=== PATIENT | male | born 1985 | race Two or more races ===

== ENCOUNTER 2016-12-16 07:22 | Emergency (ER) | payer SELFPAY ==
[~2016-12-16] VITALS: Ht 182.9 cm; Wt 90.5 kg
[~2016-12-16 07:22] MED LIST: HYDR-3965 PO; NAPR250T2 PO
[2016-12-16 08:50] VITALS: BP 113/61
[2016-12-16] MEDS ORDERED: PERTUSS(ACELL),DIPH,TET VAC/PF 0.5 ML VIAL IM ONE (09:30)
== END 2016-12-16 09:38 | disposition home or self-care (01) ==
LOC: EMS 07:24
DX: S20.219A Contusion of unspecified front wall of thorax, initial encounter (principal); S80.211A Abrasion, right knee, initial encounter; S80.811A Abrasion, right lower leg, initial encounter; F17.210 Nicotine dependence, cigarettes, uncomplicated; F12.10 Cannabis abuse, uncomplicated; V00.131A Fall from skateboard, initial encounter; Y93.51 Activity, roller skating (inline) and skateboarding; Y92.89 Other specified places as the place of occurrence of the external cause; Y99.8 Other external cause status
CPT/HCPCS: 90471; 90715; 99283

== ENCOUNTER 2017-12-03 09:33 | Emergency (ER) | payer SELFPAY ==
[~2017-12-03] VITALS: Ht 182.9 cm; Wt 100.0 kg
[2017-12-03 10:23] VITALS: BP 144/82
== END 2017-12-03 10:24 | disposition home or self-care (01) ==
LOC: EMS 09:33
DX: S91.204D Unspecified open wound of right lesser toe(s) with damage to nail, subsequent encounter (principal); B35.1 Tinea unguium; F12.90 Cannabis use, unspecified, uncomplicated; F17.210 Nicotine dependence, cigarettes, uncomplicated; Z48.02 Encounter for removal of sutures; X58.XXXD Exposure to other specified factors, subsequent encounter
CPT/HCPCS: 99282; 99406

== ENCOUNTER 2020-03-31 17:54 | Inpatient (IN) | payer MEDICAID ==
[~2020-03-31] VITALS: Ht 175.3 cm; Wt 108.6 kg
[2020-03-31 19:41] LABS: COVID AG,FIA SOURCE NASOPHARYNGEAL
[2020-03-31 19:44] LABS: BASOPHILS % (AUTO) 0.6 % (0.0-2.0); EOSINOPHILS % (AUTO) 2.6 % (1.0-6.0); HEMATOCRIT 41.5 % (41-53); HEMOGLOBIN 14.4 g/dL (13.5-17.5); LYMPHOCYTES # (AUTO) 2.9 K/uL (1.0-4.8); LYMPHOCYTES % (AUTO) 33.6 % (22.0-44.0); MEAN CORPUSCULAR HEMOGLOBIN 33.5 pg (26.0-34.0); MEAN CORPUSCULAR HGB CONC 34.6 G/dL (31.0-37.0); MEAN CORPUSCULAR VOLUME 97 fL (80-100); MONOCYTES # (AUTO) 0.7 K/uL (0.1-1.0); MONOCYTES % (AUTO) 8.3 % (2.0-9.0); NEUTROPHILS # (AUTO) 4.7 K/uL (1.8-7.7); NEUTROPHILS % (AUTO) 54.9 % (40.0-70.0); PLATELET COUNT (AUTO) 238 K/uL (150-450); RED BLOOD CELL COUNT(AUTO) 4.28 MIL/uL (4.50-5.90); RED CELL DISTRIBUTION WIDTH 13.4 % (11.5-14.5)
[2020-03-31 19:50] LABS: AMPHET/METH SCREEN,URINE NEGATIVE (NEGATIVE); BARBITURATE SCREEN, URINE NEGATIVE (NEGATIVE); BENZODIAZEPINES SCREEN,URINE NEGATIVE (NEGATIVE); CANNABINOID SCREEN,URINE NEGATIVE (NEGATIVE); COCAINE SCREEN,URINE NEGATIVE (NEGATIVE); METHADONE SCREEN, URINE NEGATIVE (NEGATIVE); OPIATE SCREEN,URINE NEGATIVE (NEGATIVE)
[2020-03-31 19:52] LABS: ANION GAP 10 mmol/L (8-16); CALCIUM, TOTAL 8.9 mg/dL (8.8-10.5); CARBON DIOXIDE 25 mmol/L (22-29); CHLORIDE 104 mmol/L (98-107); CREATININE 0.81 mg/dL (0.60-1.30); GLOMERULAR FILTR. RATE CALC > 60 mL/min (>60); GLUCOSE,RANDOM 94 mg/dL (70-110); POTASSIUM 4.4 mmol/L (3.5-5.1); SODIUM SERUM 139 mmol/L (136-145); UREA NITROGEN, BLOOD 20 mg/dL (7-18)
[2020-03-31 19:53] LABS: PHENCYCLIDINE SCREEN,URINE NEGATIVE (NEGATIVE)
[2020-03-31 19:58] LABS: ALANINE AMINOTRANSFERASE 169 U/L (12-78); ALBUMIN 3.7 g/dL (3.4-5.0); ALKALINE PHOSPHATASE 90 U/L (46-116); ASPARTATE AMINOTRANSFERASE 51 U/L (15-37); BILIRUBIN,TOTAL 0.3 mg/dL (0.1-1.0); TOTAL PROTEIN, SERUM 7.6 g/dL (6.4-8.2)
[2020-03-31] MEDS ORDERED: ZOLPIDEM TARTRATE 10 MG TABLET PO PRN (23:15)
[2020-03-31] MEDS ORDERED: QUEtiapine FUMARATE 100 MG TABLET PO PRN (23:15)
[2020-04-01 00:58] VITALS: BP 109/71
[2020-04-01] MEDS ORDERED: INFLUENZA VIRUS VACCINE QVS 2020-21 (6MO+)/PF 60 MCG/0.5 ML SYRINGE IM ONE (01:15)
[2020-04-01] MEDS ORDERED: MAG HYDROX/AL HYDROX/SIMETH ES 30 ML SUSPENSION UDCUP PO PRN (07:00)
[2020-04-01] MEDS ORDERED: ONDANSETRON HCL 4 MG TABLET PO PRN (07:00)
[2020-04-01] MEDS ORDERED: LOPERAMIDE HCL 2 MG CAPSULE PO PRN (07:00)
[2020-04-01] MEDS ORDERED: MAGNESIUM HYDROXIDE SUSPENSION 30 ML UDCUP PO PRN (07:00)
[2020-04-01] MEDS ORDERED: PETROLATUM,WHITE 28 GM JELLY TP PRN (07:00)
[2020-04-01] MEDS ORDERED: IBUPROFEN 400 MG TABLET PO PRN (07:00)
[2020-04-01] MEDS ORDERED: ALBUTEROL SULFATE HFA 90 MCG/PUFF 8 GM INHALER IH PRN (07:00)
[2020-04-01] MEDS ORDERED: NICOTINE 14 MG/24 HOUR PATCH TD PRN (07:00)
[2020-04-01] MEDS ORDERED: ACETAMINOPHEN 325 MG TABLET PO PRN (07:00)
[2020-04-01] MEDS ORDERED: CloNIDine HCL 0.1 MG TABLET PO PRN (07:00)
[2020-04-01] MEDS ORDERED: DOCUSATE SODIUM 100 MG CAPSULE PO PRN (07:00)
[2020-04-01] MEDS ORDERED: GuaiFENesin/D-METHORPHAN [SUGAR-FREE] 200-20MG/10 ML SYRUP UDCUP PO PRN (07:00)
[2020-04-01 08:10] LABS: CHOL/HDL RATIO 6.7 (4.2-7.3)
[2020-04-01 08:24] VITALS: BP 129/77
[2020-04-01] MEDS: NICOTINE 14 MG/24 HOUR PATCH TD SCH (09:36)
[2020-04-01] MEDS: LORazepam 2 MG TABLET PO PRN ×2 (09:36→20:37)
[2020-04-01 16:13] VITALS: BP 114/66
[2020-04-01] MEDS: RisperiDONE 1 MG TABLET PO SCH (20:37)
[2020-04-02 04:30] VITALS: BP 116/64
[2020-04-02 08:28] VITALS: BP 122/77
[2020-04-02] MEDS: LORazepam 2 MG TABLET PO PRN ×2 (08:47→16:41)
[2020-04-02] MEDS: RisperiDONE 1 MG TABLET PO SCH ×2 (08:47→20:38)
[2020-04-02] MEDS: NICOTINE 14 MG/24 HOUR PATCH TD SCH (08:47)
[2020-04-02 16:18] VITALS: BP 119/67
[2020-04-03 06:19] VITALS: BP 128/86
[2020-04-03] MEDS: RisperiDONE 1 MG TABLET PO SCH (08:09)
[2020-04-03] MEDS: NICOTINE 14 MG/24 HOUR PATCH TD SCH (08:09)
[2020-04-03] MEDS: LORazepam 2 MG TABLET PO PRN (08:09)
[2020-04-03 08:11] VITALS: BP 143/73
[2020-04-03] MEDS ORDERED: RISP1TAB48 PO (14:01)
== END 2020-04-03 16:15 | disposition home or self-care (01) | DRG 750 ==
LOC: EMS 17:55 → UNDOADMIN 23:08 → B3A 23:08
DX: F25.0 Schizoaffective disorder, bipolar type (principal); K21.9 Gastro-esophageal reflux disease without esophagitis; F17.210 Nicotine dependence, cigarettes, uncomplicated; F12.90 Cannabis use, unspecified, uncomplicated; E78.5 Hyperlipidemia, unspecified; R45.851 Suicidal ideations; R74.01 Elevation of levels of liver transaminase levels; Z03.818 Encounter for observation for suspected exposure to other biological agents ruled out
CPT/HCPCS: 83036; 87426; 90686; G0480

== ENCOUNTER 2020-04-14 11:51 | Inpatient (IN) | payer MEDICAID ==
[~2020-04-14] VITALS: Ht 175.3 cm; Wt 104.8 kg
[~2020-04-14 11:51] MED LIST changes: -HYDR-3965 PO; -NAPR250T2 PO; +RISP1TAB48 PO
[2020-04-14 12:21] LABS: BASOPHILS % (AUTO) 0.3 % (0.0-2.0); HEMATOCRIT 44.3 % (41-53); HEMOGLOBIN 15.5 g/dL (13.5-17.5); LYMPHOCYTES # (AUTO) 1.8 K/uL (1.0-4.8); MEAN CORPUSCULAR HEMOGLOBIN 33.5 pg (26.0-34.0); MEAN CORPUSCULAR HGB CONC 34.9 G/dL (31.0-37.0); MEAN CORPUSCULAR VOLUME 96 fL (80-100); MONOCYTES # (AUTO) 0.4 K/uL (0.1-1.0); MONOCYTES % (AUTO) 6.8 % (2.0-9.0); NEUTROPHILS # (AUTO) 3.7 K/uL (1.8-7.7); NEUTROPHILS % (AUTO) 61.9 % (40.0-70.0); PLATELET COUNT (AUTO) 257 K/uL (150-450); RED BLOOD CELL COUNT(AUTO) 4.62 MIL/uL (4.50-5.90); RED CELL DISTRIBUTION WIDTH 13.5 % (11.5-14.5)
[2020-04-14 12:28] LABS: COVID AG,FIA SOURCE NASOPHARYNGEAL
[2020-04-14 12:30] LABS: ANION GAP 6 mmol/L (8-16); CALCIUM, TOTAL 9.1 mg/dL (8.8-10.5); CARBON DIOXIDE 29 mmol/L (22-29); CHLORIDE 104 mmol/L (98-107); CREATININE 1.08 mg/dL (0.60-1.30); GLOMERULAR FILTR. RATE CALC > 60 mL/min (>60); GLUCOSE,RANDOM 102 mg/dL (70-110); POTASSIUM 4.2 mmol/L (3.5-5.1); SODIUM SERUM 139 mmol/L (136-145); UREA NITROGEN, BLOOD 11 mg/dL (7-18)
[2020-04-14 12:35] LABS: ALANINE AMINOTRANSFERASE 35 U/L (12-78); ALBUMIN 4.2 g/dL (3.4-5.0); ALKALINE PHOSPHATASE 84 U/L (46-116); ASPARTATE AMINOTRANSFERASE 22 U/L (15-37); BILIRUBIN,TOTAL 0.5 mg/dL (0.1-1.0); TOTAL PROTEIN, SERUM 8.3 g/dL (6.4-8.2)
[2020-04-14] MEDS ORDERED: LORazepam 2 MG TABLET PO ONE (13:30)
[2020-04-14] MEDS ORDERED: HALOPERIDOL 5 MG TABLET PO ONE (13:30)
[2020-04-14] MEDS ORDERED: QUEtiapine FUMARATE 100 MG TABLET PO PRN (14:30)
[2020-04-14] MEDS ORDERED: ZOLPIDEM TARTRATE 10 MG TABLET PO PRN (14:30)
[2020-04-14] MEDS: LORazepam 2 MG TABLET PO PRN (21:52)
[2020-04-14 22:14] VITALS: BP 119/74
[2020-04-15] MEDS ORDERED: INFLUENZA VIRUS VACCINE QVS 2020-21 (6MO+)/PF 60 MCG/0.5 ML SYRINGE IM ONE (00:45)
[2020-04-15 05:32] VITALS: BP 124/76
[2020-04-15 08:46] VITALS: BP 129/79
[2020-04-15] MEDS ORDERED: ACETAMINOPHEN 325 MG TABLET PO PRN (09:15)
[2020-04-15] MEDS ORDERED: PETROLATUM,WHITE 28 GM JELLY TP PRN (09:15)
[2020-04-15] MEDS ORDERED: IBUPROFEN 400 MG TABLET PO PRN (09:15)
[2020-04-15] MEDS ORDERED: GuaiFENesin/D-METHORPHAN [SUGAR-FREE] 200-20MG/10 ML SYRUP UDCUP PO PRN (09:15)
[2020-04-15] MEDS ORDERED: ALBUTEROL SULFATE HFA 90 MCG/PUFF 8 GM INHALER IH PRN (09:15)
[2020-04-15] MEDS ORDERED: ONDANSETRON HCL 4 MG TABLET PO PRN (09:15)
[2020-04-15] MEDS ORDERED: DOCUSATE SODIUM 100 MG CAPSULE PO PRN (09:15)
[2020-04-15] MEDS ORDERED: MAGNESIUM HYDROXIDE SUSPENSION 30 ML UDCUP PO PRN (09:15)
[2020-04-15] MEDS ORDERED: MAG HYDROX/AL HYDROX/SIMETH ES 30 ML SUSPENSION UDCUP PO PRN (09:15)
[2020-04-15] MEDS ORDERED: NICOTINE 14 MG/24 HOUR PATCH TD PRN (09:15)
[2020-04-15] MEDS ORDERED: LOPERAMIDE HCL 2 MG CAPSULE PO PRN (09:15)
[2020-04-15] MEDS ORDERED: CloNIDine HCL 0.1 MG TABLET PO PRN (09:15)
[2020-04-15] MEDS: NICOTINE 21 MG/24 HOUR PATCH TD SCH (10:34)
[2020-04-15] MEDS: LORazepam 2 MG TABLET PO PRN ×2 (10:34→16:55)
[2020-04-15] MEDS: RisperiDONE 1 MG TABLET PO SCH ×2 (10:58→20:39)
[2020-04-15 16:58] VITALS: BP 101/62
[2020-04-16 02:01] VITALS: BP 118/62
[2020-04-16 08:30] VITALS: BP 103/67
[2020-04-16] MEDS: RisperiDONE 1 MG TABLET PO SCH ×2 (09:47→20:22)
[2020-04-16] MEDS: NICOTINE 21 MG/24 HOUR PATCH TD SCH (12:06)
[2020-04-16] MEDS: LORazepam 2 MG TABLET PO PRN (14:25)
[2020-04-16 16:22] VITALS: BP 126/84
[2020-04-17 03:29] VITALS: BP 122/63
[2020-04-17] MEDS: LORazepam 2 MG TABLET PO PRN (03:43)
[2020-04-17 08:26] VITALS: BP 139/82
[2020-04-17] MEDS: NICOTINE 21 MG/24 HOUR PATCH TD SCH (08:30)
[2020-04-17] MEDS: RisperiDONE 1 MG TABLET PO SCH (08:30)
== END 2020-04-17 14:00 | disposition home or self-care (01) | DRG 750 ==
LOC: EMS 11:55 → B3A 18:21
DX: F25.0 Schizoaffective disorder, bipolar type (principal); E78.5 Hyperlipidemia, unspecified; Z91.5 Personal history of self-harm; F19.10 Other psychoactive substance abuse, uncomplicated; Z91.14 Patient's other noncompliance with medication regimen; F17.210 Nicotine dependence, cigarettes, uncomplicated; F12.90 Cannabis use, unspecified, uncomplicated; Z79.899 Other long term (current) drug therapy; Z20.828 Contact with and (suspected) exposure to other viral communicable diseases
CPT/HCPCS: 87081; 87426; G0480

== ENCOUNTER 2023-04-18 17:35 | Emergency (ER) | payer MEDICAID ==
[~2023-04-18] VITALS: Ht 175.3 cm; Wt 77.3 kg
[2023-04-18 17:44] VITALS: TEMP 98
[2023-04-18] MEDS ORDERED: TRAZ-257 PO (17:46)
[2023-04-18 18:14] LABS: BASOPHILS % (AUTO) 0.2 % (0.0-2.0); EOSINOPHILS % (AUTO) 2.1 % (1.0-6.0); HEMATOCRIT 41.7 % (41-53); HEMOGLOBIN 14.8 g/dL (13.5-17.5); LYMPHOCYTES # (AUTO) 2.7 K/uL (1.0-4.8); LYMPHOCYTES % (AUTO) 45.7 % (22.0-44.0); MEAN CORPUSCULAR HEMOGLOBIN 33.3 pg (26.0-34.0); MEAN CORPUSCULAR HGB CONC 35.5 G/dL (31.0-37.0); MEAN CORPUSCULAR VOLUME 94 fL (80-100); MONOCYTES # (AUTO) 0.4 K/uL (0.1-1.0); MONOCYTES % (AUTO) 6.4 % (2.0-9.0); NEUTROPHILS # (AUTO) 2.7 K/uL (1.8-7.7); NEUTROPHILS % (AUTO) 45.6 % (40.0-70.0); PLATELET COUNT (AUTO) 186 K/uL (150-450); RED BLOOD CELL COUNT(AUTO) 4.45 MIL/uL (4.50-5.90); RED CELL DISTRIBUTION WIDTH 13.2 % (11.5-14.5)
[2023-04-18 18:25] LABS: ANION GAP 4 mmol/L (8-16); CARBON DIOXIDE 32 mmol/L (22-29); CHLORIDE 101 mmol/L (98-107); GLUCOSE,RANDOM 73 mg/dL (70-110); POTASSIUM 4.4 mmol/L (3.5-5.1); SODIUM SERUM 137 mmol/L (136-145); UREA NITROGEN, BLOOD 14 mg/dL (7-18)
[2023-04-18 18:26] LABS: CALCIUM, TOTAL 9.4 mg/dL (8.8-10.5); GLOMERULAR FILTR. RATE CALC > 60 mL/min (>60)
[2023-04-18 18:30] LABS: B-TYPE NATRIURETIC PEPTIDE 11 pg/mL (0-100)
[2023-04-18 18:31] LABS: TROPONIN I-HIGH SENSITIVITY 5 ng/L (<76)
[2023-04-18 18:50] LABS: ALANINE AMINOTRANSFERASE 35 U/L (12-78); ALBUMIN 4.1 g/dL (3.4-5.0); ALKALINE PHOSPHATASE 63 U/L (46-116); ASPARTATE AMINOTRANSFERASE 16 U/L (15-37); BILIRUBIN,TOTAL 0.6 mg/dL (0.1-1.0); CREATINE KINASE, TOTAL ONLY 84 U/L (39-308); TOTAL PROTEIN, SERUM 8.2 g/dL (6.4-8.2)
[2023-04-18 18:56] LABS: APPEARANCE,URINE CLEAR (CLEAR); BILIRUBIN,URINE NEGATIVE (NEGATIVE); COLOR,URINE COLORLESS (YELLOW); GLUCOSE, URINE (UA) NEGATIVE (NEGATIVE); KETONES,URINE NEGATIVE (NEGATIVE); LEUKOCYTE ESTERASE ,URINE NEGATIVE (NEGATIVE); NITRATE,URINE NEGATIVE (NEGATIVE); OCCULT BLOOD,URINE NEGATIVE (NEGATIVE); PH,URINE 6.5 (5.0-8.0); PROTEIN,URINE NEGATIVE (NEGATIVE); SPECIFIC GRAVITIY, URINE 1.009 (1.003-1.030); UROBILINOGEN,URINE <=1.0 mg/dL (<=1.0)
[2023-04-18] MEDS ORDERED: ACETAMINOPHEN 500 MG TABLET PO ONE (20:00)
[2023-04-18] MEDS ORDERED: IBUPROFEN 600 MG TABLET PO ONE (20:00)
[2023-04-18 20:03] VITALS: BP 120/74; PULSE 60; RESP 20
[2023-04-18] MEDS ORDERED: IBUP-1554 PO (20:21)
== END 2023-04-18 20:41 | disposition admitted as inpatient to this hospital (09) ==
LOC: EMS 18:54
DX: R07.89 Other chest pain (principal); F25.1 Schizoaffective disorder, depressive type; F17.210 Nicotine dependence, cigarettes, uncomplicated; F12.90 Cannabis use, unspecified, uncomplicated
CPT/HCPCS: 71045; 80053; 81003; 82550; 83880; 84484; 85025; 93005; 99285; 36415-L1; 36415-TC

== ENCOUNTER 2023-12-10 15:47 | Emergency (ER) | payer MEDICAID ==
[~2023-12-10] VITALS: Ht 175.3 cm; Wt 78.2 kg
[~2023-12-10 15:47] MED LIST changes: +IBUP-1554 PO; +TRAZ-257 PO
[2023-12-10 15:52] VITALS: BP 119/70; PULSE 76; RESP 18; TEMP 98.1
== END 2023-12-10 16:18 | disposition left against medical advice (07) ==
LOC: EMS 15:47
DX: R10.31 Right lower quadrant pain (principal); Z53.21 Procedure and treatment not carried out due to patient leaving prior to being seen by health care provider

== ENCOUNTER 2024-05-20 09:39 | Emergency (ER) | payer MEDICAID ==
[~2024-05-20] VITALS: Ht 175.3 cm; Wt 84.1 kg
[2024-05-20 09:44] VITALS: TEMP 97.6
[2024-05-20] MEDS ORDERED: HYDR-3831 PO (11:41)
[2024-05-20] MEDS ORDERED: LURA120T2 PO (11:41)
[2024-05-20] MEDS ORDERED: GABA-1181 PO (11:41)
[2024-05-20] MEDS ORDERED: NICO-803 TD (11:41)
[2024-05-20] MEDS: OxyCODONE HCL/ACETAMINOPHEN 5-325 MG TABLET PO ONE (11:42)
[2024-05-20] MEDS ORDERED: CYCL-448 PO (11:48)
[2024-05-20] MEDS ORDERED: OXYC-38 PO (11:49)
[2024-05-20] MEDS: LIDOCAINE 5% TRANSDERMAL PATCH TD ONE (11:53)
[2024-05-20 12:30] VITALS: BP 130/78; PULSE 70; RESP 18; O2SAT 100
== END 2024-05-20 12:42 | disposition home or self-care (01) ==
LOC: EMS 09:39
DX: M54.6 Pain in thoracic spine (principal); G47.00 Insomnia, unspecified; F17.210 Nicotine dependence, cigarettes, uncomplicated; F12.90 Cannabis use, unspecified, uncomplicated; V49.40XA Driver injured in collision with unspecified motor vehicles in traffic accident, initial encounter; Y93.89 Activity, other specified; Y92.89 Other specified places as the place of occurrence of the external cause; Y99.8 Other external cause status
CPT/HCPCS: 71046; 82962; 99283; 99406

== ENCOUNTER 2024-06-23 13:54 | Emergency (ER) | payer MEDICAID ==
[~2024-06-23] VITALS: Ht 175.3 cm; Wt 86.4 kg
[~2024-06-23 13:54] MED LIST changes: +CYCL-448 PO; +GABA-1181 PO; +HYDR-3831 PO; -IBUP-1554 PO; +LURA120T2 PO; +NICO-803 TD; +OXYC-38 PO; -RISP1TAB48 PO
[2024-06-23 14:14] VITALS: TEMP 98.7
[2024-06-23 14:17] LABS: COVID AG,FIA SOURCE NASAL SWAB
[2024-06-23 14:40] LABS: INFLUENZA TYPE A NEGATIVE FOR TYPE A (NEGATIVE); INFLUENZA TYPE B NEGATIVE FOR TYPE B (NEGATIVE); SARS-COV2 (COVID) ANTIGEN,FIA Negative (Negative)
[2024-06-23] MEDS ORDERED: ACET-3385 PO (15:18)
[2024-06-23] MEDS ORDERED: IBUP-1492 PO (15:18)
[2024-06-23] MEDS: IBUPROFEN 600 MG TABLET PO ONE (15:20)
[2024-06-23 15:38] VITALS: BP 103/62; PULSE 67; RESP 18; O2SAT 99
== END 2024-06-23 15:42 | disposition home or self-care (01) ==
LOC: EMS 13:54
DX: B34.9 Viral infection, unspecified (principal); G47.00 Insomnia, unspecified; Z88.0 Allergy status to penicillin; Z20.822 Contact with and (suspected) exposure to COVID-19
CPT/HCPCS: 87804; 99283

== ENCOUNTER 2024-07-06 14:56 | Emergency (ER) | payer MEDICAID ==
[~2024-07-06] VITALS: Ht 175.3 cm; Wt 81.8 kg
[~2024-07-06 14:56] MED LIST changes: +ACET-3385 PO; -CYCL-448 PO; +IBUP-1492 PO; -OXYC-38 PO
[2024-07-06 15:14] VITALS: TEMP 98.7
[2024-07-06 16:14] LABS: BASOPHILS % (AUTO) 0.6 % (0.0-2.0); EOSINOPHILS % (AUTO) 1.1 % (1.0-6.0); HEMATOCRIT 43.4 % (41-53); HEMOGLOBIN 14.8 g/dL (13.5-17.5); LYMPHOCYTES # (AUTO) 2.4 K/uL (1.0-4.8); LYMPHOCYTES % (AUTO) 35.4 % (22.0-44.0); MEAN CORPUSCULAR HEMOGLOBIN 32.8 pg (26.0-34.0); MEAN CORPUSCULAR HGB CONC 34.1 G/dL (31.0-37.0); MEAN CORPUSCULAR VOLUME 96 fL (80-100); MONOCYTES # (AUTO) 0.4 K/uL (0.1-1.0); MONOCYTES % (AUTO) 5.9 % (2.0-9.0); NEUTROPHILS # (AUTO) 3.8 K/uL (1.8-7.7); PLATELET COUNT (AUTO) 193 K/uL (150-450); RED BLOOD CELL COUNT(AUTO) 4.52 MIL/uL (4.50-5.90); RED CELL DISTRIBUTION WIDTH 13.1 % (11.5-14.5); WHITE BLOOD COUNT (AUTO) 6.7 K/uL (4.5-11.0)
[2024-07-06 16:23] LABS: ANION GAP 4 mmol/L (8-16); CALCIUM, TOTAL 8.7 mg/dL (8.8-10.5); CARBON DIOXIDE 30 mmol/L (22-29); CHLORIDE 107 mmol/L (98-107); CREATININE 0.77 mg/dL (0.60-1.30); GLOMERULAR FILTR. RATE CALC > 60 mL/min (>60); GLUCOSE,RANDOM 89 mg/dL (70-110); POTASSIUM 4.3 mmol/L (3.5-5.1); SODIUM SERUM 141 mmol/L (136-145); UREA NITROGEN, BLOOD 15 mg/dL (7-18)
[2024-07-06 16:27] LABS: ALANINE AMINOTRANSFERASE 31 U/L (12-78); ALBUMIN 3.7 g/dL (3.4-5.0); ALKALINE PHOSPHATASE 67 U/L (46-116); ASPARTATE AMINOTRANSFERASE 21 U/L (15-37); BILIRUBIN,TOTAL 0.7 mg/dL (0.1-1.0); LIPASE 38 U/L (16-77); TOTAL PROTEIN, SERUM 7.3 g/dL (6.4-8.2)
[2024-07-06] MEDS ORDERED: 0.9% SODIUM CHLORIDE 10 ML SYRINGE IVP ONE (16:56)
[2024-07-06] MEDS ORDERED: IOHEXOL 350 MG/ML 100 ML VIAL ONE (16:56)
[2024-07-06] MEDS ORDERED: SODIUM CHLORIDE 0.9% 100 ML ONE (16:56)
[2024-07-06] MEDS: KETOROLAC TROMETHAMINE 30 MG/ML VIAL IVP ONE (17:08)
[2024-07-06] MEDS: SODIUM CHLORIDE 0.9% 1,000 ML IV ONE (17:08)
[2024-07-06 18:11] VITALS: BP 112/68; PULSE 72; RESP 18; O2SAT 99
[2024-07-06 18:37] LABS: APPEARANCE,URINE CLEAR (CLEAR); BILIRUBIN,URINE NEGATIVE (NEGATIVE); COLOR,URINE COLORLESS (YELLOW); GLUCOSE, URINE (UA) NEGATIVE (NEGATIVE); KETONES,URINE NEGATIVE (NEGATIVE); LEUKOCYTE ESTERASE ,URINE NEGATIVE (NEGATIVE); NITRATE,URINE NEGATIVE (NEGATIVE); OCCULT BLOOD,URINE NEGATIVE (NEGATIVE); PROTEIN,URINE NEGATIVE (NEGATIVE); SPECIFIC GRAVITIY, URINE 1.036 (1.003-1.030); UROBILINOGEN,URINE <=1.0 mg/dL (<=1.0)
== END 2024-07-06 19:06 | disposition home or self-care (01) ==
LOC: EMS 14:56
DX: R10.31 Right lower quadrant pain (principal); R30.0 Dysuria; F17.210 Nicotine dependence, cigarettes, uncomplicated; Z88.0 Allergy status to penicillin; Z79.899 Other long term (current) drug therapy
CPT/HCPCS: 99285; 74177; 96374; 96361; 80048; 80076; 81003; 83690; 85025; 36415; J1885; Q9967; J7030; J7050

== ENCOUNTER 2024-08-24 06:42 | Emergency (ER) | payer MEDICAID ==
[~2024-08-24] VITALS: Ht 175.3 cm; Wt 90.9 kg
[2024-08-24 06:54] VITALS: TEMP 98.3
[2024-08-24 07:38] LABS: BASOPHILS % (AUTO) 0.4 % (0.0-2.0); EOSINOPHILS % (AUTO) 2.4 % (1.0-6.0); HEMATOCRIT 42.8 % (41-53); HEMOGLOBIN 15.1 g/dL (13.5-17.5); LYMPHOCYTES # (AUTO) 1.9 K/uL (1.0-4.8); MEAN CORPUSCULAR HEMOGLOBIN 33.6 pg (26.0-34.0); MEAN CORPUSCULAR HGB CONC 35.4 G/dL (31.0-37.0); MEAN CORPUSCULAR VOLUME 95 fL (80-100); MONOCYTES # (AUTO) 0.2 K/uL (0.1-1.0); MONOCYTES % (AUTO) 5.8 % (2.0-9.0); NEUTROPHILS # (AUTO) 1.7 K/uL (1.8-7.7); NEUTROPHILS % (AUTO) 43.4 % (40.0-70.0); PLATELET COUNT (AUTO) 150 K/uL (150-450); RED CELL DISTRIBUTION WIDTH 13.6 % (11.5-14.5); WHITE BLOOD COUNT (AUTO) 3.9 K/uL (4.5-11.0)
[2024-08-24] MEDS: MAG HYDROX/ALUMINUM HYD/SIMETH 30 ML SUSPENSION UDCUP PO ONE (07:40)
[2024-08-24] MEDS: ACETAMINOPHEN 325 MG TABLET PO ONE (07:41)
[2024-08-24] MEDS: PANTOPRAZOLE SODIUM 40 MG DR TABLET PO ONE (07:41)
[2024-08-24 07:45] LABS: ANION GAP 5 mmol/L (8-16); CARBON DIOXIDE 29 mmol/L (22-29); CHLORIDE 103 mmol/L (98-107); CREATININE 0.76 mg/dL (0.60-1.30); GLOMERULAR FILTR. RATE CALC > 60 mL/min (>60); GLUCOSE,RANDOM 104 mg/dL (70-110); POTASSIUM 4.2 mmol/L (3.5-5.1); SODIUM SERUM 137 mmol/L (136-145); UREA NITROGEN, BLOOD 9 mg/dL (7-18)
[2024-08-24 07:46] LABS: LIPASE 27 U/L (16-77)
[2024-08-24 07:50] LABS: CALCIUM, TOTAL 8.8 mg/dL (8.8-10.5)
[2024-08-24 08:06] LABS: ALBUMIN 3.8 g/dL (3.4-5.0); BILIRUBIN,DIRECT 0.3 mg/dL (0.00-0.20); TOTAL PROTEIN, SERUM 7.4 g/dL (6.4-8.2)
[2024-08-24 08:12] LABS: APPEARANCE,URINE CLEAR (CLEAR); BILIRUBIN,URINE NEGATIVE (NEGATIVE); COLOR,URINE YELLOW (YELLOW); GLUCOSE, URINE (UA) NEGATIVE (NEGATIVE); KETONES,URINE NEGATIVE (NEGATIVE); LEUKOCYTE ESTERASE ,URINE NEGATIVE (NEGATIVE); NITRATE,URINE NEGATIVE (NEGATIVE); OCCULT BLOOD,URINE NEGATIVE (NEGATIVE); PH,URINE 5.5 (5.0-8.0); PROTEIN,URINE TRACE mg/dL (NEGATIVE); SPECIFIC GRAVITIY, URINE 1.022 (1.003-1.030); UROBILINOGEN,URINE <=1.0 mg/dL (<=1.0)
[2024-08-24] MEDS ORDERED: PANT-31 PO (11:45)
[2024-08-24 11:52] VITALS: BP 107/63; PULSE 61; RESP 18; O2SAT 99
== END 2024-08-24 12:18 | disposition home or self-care (01) ==
LOC: EMS 06:44
DX: K21.9 Gastro-esophageal reflux disease without esophagitis (principal); F17.210 Nicotine dependence, cigarettes, uncomplicated; Z88.0 Allergy status to penicillin
CPT/HCPCS: 76705; 80048; 80076; 81003; 83690; 85025; 99284